=== PATIENT | male | born 1985 | race African-American/Black ===

== ENCOUNTER 2018-02-26 18:43 | Inpatient (IN) ==
[2018-02-26] MEDS ORDERED: Haloperidol Inj 5 MG/ML Ampul IM ONE (18:53)
--- NOTE | 2018-02-26 18:59 | ED ---
HPI General Chief complaint: Psychiatric Symptoms Stated complaint: psych eval/sherriff Time Seen by Provider: 02/27/18 12:20 Source: patient and police Mode of arrival: ambulatory Limitations: no limitations History of Present Illness HPI Narrative: 32-year-old male was Robert acted and brought in by Police Department for suicidal. Patient admitted to drinking alcohol today. Patient had recent in the family. Patient was suicidal and walking into traffic today. Patient's brother called police department. Patient was Robert acted and brought in for evaluation. Patient states that he does not have any medical problem. Patient states that he is not on any routine medication. Patient states he not allergic to medication. 1921 PM. Patient now states that he is HIV positive. complaint: Reports medical clearance requested Onset (ago): hour(s) Reason for Medical Clearance: psychiatric condition Place: home Alleged Intoxication: Yes Traumatic Symptoms: Reports denies traumatic injury Associated Symptoms: Reports denies other symptoms Treatments Prior to Arrival: Reports none Home Medications Medication Instructions Recorded Confirmed No Known Home Medications 02/26/18 02/26/18 Allergies Allergy/AdvReac Type Severity Reaction Status Date / Time No Known Allergies Allergy Verified 02/26/18 19:17 Review of Systems ROS: all other systems reviewed are negative PMFSH History History Provided By: Patient Medical History Medical History HIV (human immunodeficiency virus infection) (Acute) Social History Social History Substance History: No History of Abuse Second Hand Smoke Exposure: No Smoking Status: Never smoker Tobacco Type: Cigarettes How Often Do You Have a Drink Containing Alcohol: Never Recent Travel in [facility] within the Last 8 Weeks: No Recent Out of Country Travel within the Last 8 Weeks: No Exam Narrative Exam Narrative: GENERAL: Well-nourished, well-developed patient. SKIN: Focused skin assessment warm/dry. HEAD: Normocephalic. EYES: No scleral icterus. No injection or drainage. NECK: Supple, trachea midline. No JVD or lymphadenopathy. CARDIOVASCULAR: Regular rate and rhythm without murmurs, gallops, or rubs. RESPIRATORY: Breath sounds equal bilaterally. No accessory muscle use. GASTROINTESTINAL: Abdomen soft, non-tender, nondistended. MUSCULOSKELETAL: No cyanosis, or edema. BACK: Nontender without obvious deformity. No CVA tenderness. Neurologic exam normal. Course Initial Documented Vital Signs Temperature 98.7 F 02/26/18 19:02 Pulse Rate 80 02/26/18 19:02 Respiratory Rate 18 02/26/18 19:02 Last Documented Vital Signs Temperature 98.3 F 02/28/18 04:00 Pulse Rate 59 L 02/28/18 04:00 Respiratory Rate 17 02/28/18 04:00 Blood Pressure 116/68 02/28/18 04:00 Pulse Oximetry 96 02/28/18 04:00 Medical Decision Making MDM Narrative Medical decision making narrative: 32-year-old male was Jones acted and brought in by Police Department for suicidal attempt. 2020 8 PM. Patient is medically cleared for psychiatric evaluation. Medical Screen Exam Complete: Yes Emergency Medical Condition: Yes Differential Diagnosis Differential Diagnosis: Differential diagnosis including adjustment disorder, depression, suicidal, substance-induced mood disorder. Lab Data Lab results reviewed: Yes I reviewed the patient's lab results. Result diagrams: 02/26/18 19:15 02/26/18 19:15 Lab Results 02/26/18 02/26/18 02/27/18 Range/Units 19:15 19:15 15:45 WBC 3.7 L (4.0-11.0) th/mm3 RBC 5.25 (4.50-5.90) mil/mm3 Hgb 15.3 (13.0-17.0) gm/dL Hct 43.6 (39.0-51.0) % MCV 83.1 (80.0-100.0) fL MCH 29.2 (27.0-34.0) pg MCHC 35.1 (32.0-36.0) % RDW 13.7 (11.6-17.2) % Plt Count 210 (150-450) th/mm3 MPV 7.9 (7.0-11.0) fL Prelim Diff (Auto) Slide review pending Neut % (Auto) 23.8 (16.0-70.0) % Lymph % (Auto) 63.6 H (9.0-44.0) % [place] % (Auto) 6.3 (0.0-8.0) % Eos % (Auto) 5.4 H (0.0-4.0) % Baso % (Auto) 0.9 (0.0-2.0) % Neut # (Auto) 0.9 L (1.8-7.7) th/mm3 Lymph # (Auto) 2.3 (1.0-4.8) th/mm3 [place] # (Auto) 0.2 (0.0-0.9) th/mm3 Eos # (Auto) 0.2 (0.0-0.4) th/mm3 Baso # (Auto) 0.0 (0.0-0.2) th/mm3 WBC Differential Manual diff final Seg Neuts % (Manual) 22 (16-70) % Band Neuts % (Manual) 3 (0-6) % Lymphocytes % (Manual) 53 H (9-44) % Atypical Lymphs % (Man) 12 H (0-0) % Monocytes % (Manual) 1 (0-8) % Eosinophils % (Manual) 7 H (0-4) % Basophils % (Manual) 1 (0-2) % Metamyelocytes % (Man) 1 (0-1) % Abs Neuts (Manual) 1.0 L (1.8-7.7) th/mm3 Differential Comment . Platelet Estimate Normal (Normal) Platelet Morphology Normal (Normal) Sodium 139 (136-145) meq/L Potassium 3.6 (3.5-5.1) meq/L Chloride 107 (98-107) meq/L Carbon Dioxide 21.7 (21.0-32.0) meq/L Anion Gap 10 (5-15) meq/L BUN 11 (7-18) mg/dL Creatinine 0.99 (0.60-1.30) mg/dL Estimated GFR 89 (>89) mL/min Random Glucose 63 L (74-106) mg/dL Calcium 8.9 (8.5-10.1) mg/dL Total Bilirubin 0.3 (0.2-1.0) mg/dL AST 29 (15-37) U/L ALT 26 (12-78) U/L Alkaline Phosphatase 113 (45-117) U/L Total Protein 8.9 H (6.4-8.2) g/dL Albumin 4.0 (3.4-5.0) g/dL Triglycerides (42-150) mg/dL Cholesterol (120-200) mg/dL LDL Cholesterol, Calc (0-99) mg/dL HDL Cholesterol (40.0-60.0) mg/dL Cholesterol/HDL Ratio Ratio TSH 1.430 (0.358-3.740) uIU/mL Urine Opiates Screen Neg (Neg) Ur Barbiturates Screen Neg (Neg) Ur Amphetamines Screen Pos H (Neg) U Benzodiazepines Scrn Neg (Neg) Urine Cocaine Screen Neg (Neg) U Cannabinoids Screen Pos H (Neg) Serum Alcohol 194 H (0-5) mg/dL 02/28/18 Range/Units 06:01 WBC (4.0-11.0) th/mm3 RBC (4.50-5.90) mil/mm3 Hgb (13.0-17.0) gm/dL Hct (39.0-51.0) % MCV (80.0-100.0) fL MCH (27.0-34.0) pg MCHC (32.0-36.0) % RDW (11.6-17.2) % Plt Count (150-450) th/mm3 MPV (7.0-11.0) fL Prelim Diff (Auto) Neut % (Auto) (16.0-70.0) % Lymph % (Auto) (9.0-44.0) % [place] % (Auto) (0.0-8.0) % Eos % (Auto) (0.0-4.0) % Baso % (Auto) (0.0-2.0) % Neut # (Auto) (1.8-7.7) th/mm3 Lymph # (Auto) (1.0-4.8) th/mm3 [place] # (Auto) (0.0-0.9) th/mm3 Eos # (Auto) (0.0-0.4) th/mm3 Baso # (Auto) (0.0-0.2) th/mm3 WBC Differential Seg Neuts % (Manual) (16-70) % Band Neuts % (Manual) (0-6) % Lymphocytes % (Manual) (9-44) % Atypical Lymphs % (Man) (0-0) % Monocytes % (Manual) (0-8) % Eosinophils % (Manual) (0-4) % Basophils % (Manual) (0-2) % Metamyelocytes % (Man) (0-1) % Abs Neuts (Manual) (1.8-7.7) th/mm3 Differential Comment Platelet Estimate (Normal) Platelet Morphology (Normal) Sodium (136-145) meq/L Potassium (3.5-5.1) meq/L Chloride (98-107) meq/L Carbon Dioxide (21.0-32.0) meq/L Anion Gap (5-15) meq/L BUN (7-18) mg/dL Creatinine (0.60-1.30) mg/dL Estimated GFR (>89) mL/min Random Glucose (74-106) mg/dL Calcium (8.5-10.1) mg/dL Total Bilirubin (0.2-1.0) mg/dL AST (15-37) U/L ALT (12-78) U/L Alkaline Phosphatase (45-117) U/L Total Protein (6.4-8.2) g/dL Albumin (3.4-5.0) g/dL Triglycerides 100 (42-150) mg/dL Cholesterol 151 (120-200) mg/dL LDL Cholesterol, Calc 93 (0-99) mg/dL HDL Cholesterol 37.7 L (40.0-60.0) mg/dL Cholesterol/HDL Ratio 4.00 Ratio TSH (0.358-3.740) uIU/mL Urine Opiates Screen (Neg) Ur Barbiturates Screen (Neg) Ur Amphetamines Screen (Neg) U Benzodiazepines Scrn (Neg) Urine Cocaine Screen (Neg) U Cannabinoids Screen (Neg) Serum Alcohol (0-5) mg/dL Discharge Plan Discharge Disposition Patient Disposition: 32 Still Patient Physicians Team ED Provider: Hermes Horton Primary Care Provider: UNKNOWN, Attending Provider: Lexa Ku Discharge Interventions Interventions: ED Discharge Assessment Last Done: 02/27/18 18:45 Vital Signs Last Done: 02/27/18 04:20 Status ED Status: Left Department Discharge Information Discharge Date/Time: 02/27/18 15:45
[2018-02-26 19:32] LABS: Baso % (Auto) 0.9 % (0.0-2.0); Eos # (Auto) 0.2 th/mm3 (0.0-0.4); Eos % (Auto) 5.4 % (0.0-4.0); Hematocrit 43.6 % (39.0-51.0); Hemoglobin 15.3 gm/dL (13.0-17.0); Lymph # (Auto) 2.3 th/mm3 (1.0-4.8); Lymph % (Auto) 63.6 % (9.0-44.0); Mean Corpuscular HGB Conc 35.1 % (32.0-36.0); Mean Corpuscular Hemoglobin 29.2 pg (27.0-34.0); Mean Corpuscular Volume 83.1 fL (80.0-100.0); Mean Platelet Volume 7.9 fL (7.0-11.0); Mono # (Auto) 0.2 th/mm3 (0.0-0.9); Mono % (Auto) 6.3 % (0.0-8.0); Neut # (Auto) 0.9 th/mm3 (1.8-7.7); Neut % (Auto) 23.8 % (16.0-70.0); Platelet Count 210 th/mm3 (150-450); Red Blood Count 5.25 mil/mm3 (4.50-5.90); Red Cell Distribution Width 13.7 % (11.6-17.2); White Blood Count 3.7 th/mm3 (4.0-11.0)
[2018-02-26 20:09] LABS: Anion Gap 10 meq/L (5-15); Blood Urea Nitrogen 11 mg/dL (7-18); Calcium 8.9 mg/dL (8.5-10.1); Carbon Dioxide 21.7 meq/L (21.0-32.0); Chloride 107 meq/L (98-107); Glomerular Filtration Rate 89 mL/min (>89); Glucose,Random 63 mg/dL (74-106); Potassium 3.6 meq/L (3.5-5.1); Sodium 139 meq/L (136-145)
[2018-02-26 20:11] LABS: Alanine Aminotransferase 26 U/L (12-78); Aspartate Aminotransferase 29 U/L (15-37)
[2018-02-26 20:13] LABS: Alcohol 194 mg/dL (0-5)
[2018-02-26 20:21] LABS: Alkaline Phosphatase 113 U/L (45-117); Total Protein 8.9 g/dL (6.4-8.2)
[2018-02-26 20:31] LABS: Atypical Lymphs 12 % (0-0); Eosinophils 7 % (0-4); Lymphocytes 53 % (9-44); Metamyelocytes 1 % (0-1); Monocytes 1 % (0-8)
[2018-02-26 20:33] LABS: Platelet Estimate Normal (Normal); Platelet Morphology Normal (Normal)
--- NOTE | 2018-02-27 13:09 | ED ---
HPI - Psych - General Source: patient, police Mode of arrival: ambulatory Limitations: no limitations - History of Present Illness MD complaint: suicidal ideation Onset (ago): week(s) Duration: constant History of same: Yes Relieving factors: none Exacerbating factors: alcohol Context: significant life stressor Associated psychiatric symptoms: depression Associated symptoms: denies other symptoms Treatments prior to arrival: placed on mental health hold If self harm: admits thoughts of self harm - General Chief Complaint: Psychiatric Symptoms Stated Complaint: psych eval/sherriff Time Seen by Provider: 02/27/18 12:20 - History of Present Illness HPI Narrative: History of Present Illness HPI Narrative: 32-year-old, single,, male, unemployed, currently living with his immediate family, no previous psychiatric history, 1 previous suicide attempt in 2008, who presents to the ED under Jones act initiated by law enforcement. That report alleges that the patient responded to a call from the patient's brother who stated the patient was running into traffic trying to kill himself. Patient reported to the police that he had been depressed and drinking heavily due to the recent of his brother. Patient was under the influence at the time and presented to the ED with blood alcohol level of 194. Electronic medical record is reviewed. No previous contact with [facility]. Patient has been monitored in J pod. He has been isolative, has refused his breakfast. Patient is seen. He is alert and oriented. He initially states that he was not trying to get hit by a car but that rather he was trying to get away from his family. However towards the end of the visit the patient began to cry and admitted that he wanted to . He also goes on to state that he never feels happy and that he does not see a purpose for his life. " I wish you guys which just sent me away" he states. The patient reports that he has felt depressed for a very long time. In terms of previous suicide attempt he states "I think I tried to hang myself back in 2008 when my sister ."He states his sister drowned in a swimming pool. He did not follow-up with treatment after his 3- day stay at [facility]. Current stressors include to include the recent of his brother in a motor vehicle accident approximately 3 weeks ago. (Emely Beck) - Related Data Home Medications Medication Instructions Recorded Confirmed No Known Home Medications 02/26/18 02/26/18 Allergies Allergy/AdvReac Type Severity Reaction Status Date / Time No Known Allergies Allergy Verified 02/26/18 19:17 [facility] - History History Provided By: Patient - Medical History Medical History: Medical History (Last Updated 02/26/18 @ 19:18 by Elif Arellano RN) HIV (human immunodeficiency virus infection) - Social History I have reviewed the patient's Social History: Yes - Tobacco History Second Hand Smoke Exposure: No Tobacco Use In Past 30 Days: No Smoking Status: Refused to answer Tobacco Type: Cigarettes - Alcohol History How Often Do You Have a Drink Containing Alcohol: 4 or more times a week - Substance Use History Substance History: Unable to Obtain - Travel History Recent Travel in the [place] Within the Last 8 Weeks: No Recent Travel Out of the Country Within the Last 8 Weeks: No - Immunization History Tetanus Immunization: Unsure Psychiatric History - Psychiatric History Psychiatric Treatment History: History of Psychiatric Treatment, Denies Previous Treatment History of Inpatient Treatment: No Firearms in Home: No - Psychiatric History 1 previous suicide attempt in 2008 by hanging. Was placed under Jones act and taken to [facility]. He reports he did not received outpatient care and that he refused to take medications (Beck,Emely) - Family Psychiatric History Unaware of any (Beck,Emely) Physical Exam - General Limitations: no limitations Mental Status Examination Consciousness: Alert Orientation: x4 Motor Activity: Normal gait Speech: Hesitant Language: Adequate Fund of Knowledge: Adequate Attention and Concentration: Adequate Memory: Unremarkable Mood: Sad Affect: Other Thought Process & Associations: Intact, Logical (Tearful at times), Goal directed Thought Content: Appropriate Hallucination Type: None Delusion Type: None Suicidal Ideation: Yes Suicidal Plan: No Suicidal Intention: No Homicidal Ideation: No Homicidal Plan: No Homicidal Intention: No Insight: Fair Judgment: Impulsive Initial Documented Vital Signs Temperature 98.7 F 02/26/18 19:02 Pulse Rate 80 02/26/18 19:02 Respiratory Rate 18 02/26/18 19:02 Last Documented Vital Signs Temperature 98.9 F 02/26/18 19:05 Pulse Rate 80 02/27/18 04:20 Respiratory Rate 18 02/27/18 04:20 Blood Pressure 123/72 02/27/18 04:20 Pulse Oximetry 100 02/27/18 04:20 MDM - Psych - Diagnosis (1) Adjustment disorder with depressed mood Status: Acute - Lab Data Result diagrams: 02/26/18 19:15 02/26/18 19:15 - [facility] Narrative Medical decision making narrative: At the time of this evaluation the patient is clinically sober. He continues to endorse depressed mood with hopelessness. He also continues to endorse suicidal ideation. Patient will remain under a Jones act and we will place him on SMA list for disposition. If a bed does not come available within a reasonable amount of time may consider admitting to our inpatient psychiatric unit. (Emely Beck) - Lab Data Lab Results 02/26/18 02/26/18 Range/Units 19:15 19:15 WBC 3.7 L (4.0-11.0) th/mm3 RBC 5.25 (4.50-5.90) mil/mm3 Hgb 15.3 (13.0-17.0) gm/dL Hct 43.6 (39.0-51.0) % MCV 83.1 (80.0-100.0) fL MCH 29.2 (27.0-34.0) pg MCHC 35.1 (32.0-36.0) % RDW 13.7 (11.6-17.2) % Plt Count 210 (150-450) th/mm3 MPV 7.9 (7.0-11.0) fL Prelim Diff (Auto) Slide review pending Neut % (Auto) 23.8 (16.0-70.0) % Lymph % (Auto) 63.6 H (9.0-44.0) % [place] % (Auto) 6.3 (0.0-8.0) % Eos % (Auto) 5.4 H (0.0-4.0) % Baso % (Auto) 0.9 (0.0-2.0) % Neut # (Auto) 0.9 L (1.8-7.7) th/mm3 Lymph # (Auto) 2.3 (1.0-4.8) th/mm3 [place] # (Auto) 0.2 (0.0-0.9) th/mm3 Eos # (Auto) 0.2 (0.0-0.4) th/mm3 Baso # (Auto) 0.0 (0.0-0.2) th/mm3 WBC Differential Manual diff final Seg Neuts % (Manual) 22 (16-70) % Band Neuts % (Manual) 3 (0-6) % Lymphocytes % (Manual) 53 H (9-44) % Atypical Lymphs % (Man) 12 H (0-0) % Monocytes % (Manual) 1 (0-8) % Eosinophils % (Manual) 7 H (0-4) % Basophils % (Manual) 1 (0-2) % Metamyelocytes % (Man) 1 (0-1) % Abs Neuts (Manual) 1.0 L (1.8-7.7) th/mm3 Differential Comment . Platelet Estimate Normal (Normal) Platelet Morphology Normal (Normal) Sodium 139 (136-145) meq/L Potassium 3.6 (3.5-5.1) meq/L Chloride 107 (98-107) meq/L Carbon Dioxide 21.7 (21.0-32.0) meq/L Anion Gap 10 (5-15) meq/L BUN 11 (7-18) mg/dL Creatinine 0.99 (0.60-1.30) mg/dL Estimated GFR 89 (>89) mL/min Random Glucose 63 L (74-106) mg/dL Calcium 8.9 (8.5-10.1) mg/dL Total Bilirubin 0.3 (0.2-1.0) mg/dL AST 29 (15-37) U/L ALT 26 (12-78) U/L Alkaline Phosphatase 113 (45-117) U/L Total Protein 8.9 H (6.4-8.2) g/dL Albumin 4.0 (3.4-5.0) g/dL TSH 1.430 (0.358-3.740) uIU/mL Serum Alcohol 194 H (0-5) mg/dL
[2018-02-27] MEDS ORDERED: Acetaminophen 325 MG Tablet PO PRN (16:27)
[2018-02-27] MEDS ORDERED: Aluminum/Magnesium/Simethacone Susp 30 ML UDC PO PRN (16:27)
[2018-02-27] MEDS ORDERED: LORazepam 1 MG Tablet PO PRN (16:28)
[2018-02-27] MEDS ORDERED: Haloperidol Inj 5 MG/ML Ampul IV.PUSH PRN (16:28)
[2018-02-27 16:35] LABS: Amphetamine Screen,Urine Pos (Neg); Barbiturate Screen,Urine Neg (Neg); Cannabinoid Screen,Urine Pos (Neg); Cocaine Screen,Urine Neg (Neg)
[2018-02-27 16:36] LABS: Opiate Screen,Urine Neg (Neg)
[2018-02-28 07:41] LABS: HDL Cholesterol 37.7 mg/dL (40.0-60.0)
[2018-02-28] MEDS: Folic Acid 1 MG Tablet PO SCH (10:14)
[2018-02-28] MEDS: Multivitamin/Minerals Therapeutic Tablet PO SCH (10:14)
[2018-02-28 13:06] LABS: Hemoglobin A1c 5.2 % (4.3-6.0)
--- NOTE | 2018-02-28 17:14 | P.HPPSY ---
Provisional Diagnosis Admission Date: February 27, 2018 16:51 Competence Certification of Person's Competence To Provide Express and Informed Consent I have personally examined Roosevelt Hayes, a person being served at [facility] on, February 28, 2018 1708. Express and informed consent means consent voluntarily given in writing, by a competent person, after sufficient explanation and disclosure of the subject matter involved to enable the person to make a knowing and willful decision without any element of force, fraud, deceit, duress, or other form of constraint or coercion. This person is 18 years of age or older, is not now known to be incompetent to consent to treatment with a guardian advocate, and does not have a health care surrogate or proxy currently making medical treatment decisions. I have found this person to be one of the following: [] Competent to provide express and informed consent, as defined above, for voluntary admission to this facility and is competent to provide express and informed consent for treatment. He/she has the consistent capacity to make well reasoned, willful, and knowing decisions concerning his or her medical or mental health treatment. The person fully and consistently understands the purpose of the admission for examination/placement and is fully capable of personally exercising all rights assured [place] [X] Incompetent to provide express and informed consent to voluntary admission, and this is incompetent to provide express and informed consent to treatment. The person must be transferred to involuntary status and a petition for a guardian advocate filed with the Circuit Court. [] Refusing to provide express and informed consent to voluntary admission but is competent to provide express and informed consent for treatment. The person must be discharged or transferred to involuntary status. Form shall be completed within 24 hours of a person's arrival at the receiving facility and filed in the clinical record of each person: 1. Admitted on a voluntary basis 2. Permitted to provide express and informed consent to his/her own treatment 3. Allowed to transfer from involuntary to voluntary status 4. Prior to permitting a person to consent to his or her own treatment after having been previously found incompetent to consent to treatment. History of Present Illness Capacity: Lacks capacity Chief Complaint: SI History of Present Illness: Patient is a 32-year-old black male with a previous history of suicide attempt. Patient interviewed in bed and is guarded, evasive and at times rude. He continues to give conflicting information as he did in the note noted below. Today, patient claims he was never suicidal and never made statements he wanted to run into traffic. He is oppositional, with an irritable affect and minimal interaction during the interview. He minimizes alcohol use before the event. He does admit to recent depressed mood with low energy. However, today, he denies suicidal or homicidal ideation intent or plan. Recent stressors include the recent of his cousin in August 04 of this year. Describes his mood is "anxiety, loss of anxiety." Past psych: Try to kill himself in 2008 via hanging his young sister drowned in a pool Past medical: HIV? Past Famhx: Mom has depression Past Social:Claims he drinks a beer a day or glass of alcohol a day. Says he is working and in school. 32-year-old, single,, male, unemployed, currently living with his immediate family, no previous psychiatric history, 1 previous suicide attempt in 2008, who presents to the ED under Jones act initiated by law enforcement. That report alleges that the patient responded to a call from the patient's brother who stated the patient was running into traffic trying to kill himself. Patient reported to the police that he had been depressed and drinking heavily due to the recent of his brother. Patient was under the influence at the time and presented to the ED with blood alcohol level of 194. Electronic medical record is reviewed. No previous contact with [facility]. Patient has been monitored in J pod. He has been isolative, has refused his breakfast. Patient is seen. He is alert and oriented. He initially states that he was not trying to get hit by a car but that rather he was trying to get away from his family. However towards the end of the visit the patient began to cry and admitted that he wanted to . He also goes on to state that he never feels happy and that he does not see a purpose for his life. " I wish you guys which just sent me away" he states. The patient reports that he has felt depressed for a very long time. In terms of previous suicide attempt he states "I think I tried to hang myself back in 2008 when my sister ."He states his sister drowned in a swimming pool. He did not follow-up with treatment after his 3- day stay at [place]. Current stressors include to include the recent of his brother in a motor vehicle accident approximately 3 weeks ago. - Inpatient Certification I certify that the inpatient services were ordered in accordance with Medicare regulations governing the order. This includes certification that hospital inpatient services are reasonable and necessary and in the case of services not specified as inpatient-only under 42 CFR 419.22(n), that they are appropriately provided as inpatient services in accordance to with the 2-midnight benchmark under 43 CFR 412.3(e) I certify that inpatient psychiatric hospital services are medically necessary. Evaluation and treatment and/or diagnostic testing are expected to improve the patient's condition. The patient needs on a daily basis, active treatment furnished directly by or requiring the supervision of inpatient psychiatric facility personnel. Estimated Total Length of Stay (Days): 5 Plans for Post Hospital Care: Not yet determined PMF - History History Provided By: Patient - Medical History Medical History: Medical History (Last Reviewed 02/28/18 @ 17:11 by Ben Robert DO) HIV (human immunodeficiency virus infection) - Tobacco History Second Hand Smoke Exposure: No Tobacco Use In Past 30 Days: No Smoking Status: Never smoker Tobacco Type: Cigarettes - Alcohol History How Often Do You Have a Drink Containing Alcohol: Never - Substance Use History Substance History: Unable to Obtain - Travel History Recent Travel in the [place] Within the Last 8 Weeks: No Recent Travel Out of the Country Within the Last 8 Weeks: No - Immunization History Tetanus Immunization: >5 Years Hx Influenza Vaccine This Season: No Medications and Allergies Active Medications: Active Medications Acetaminophen (Tylenol) 650 mg PO Q4H PRN PRN Reason: Pain 1-5 or Temp >101F Al Hydrox/Mg Hydrox/Simethicone (Mag-Al Plus Susp Liq) 30 ml PO Q6H PRN PRN Reason: DYSPEPSIA Al Hydroxide/Mg Hydroxide (Milk Of Magnesia Liq) 30 ml PO Q12H PRN PRN Reason: Mild Constipation Flumazenil (Romazecon Inj) 0.2 mg IV.PUSH Q1M PRN PRN Reason: OVERSEDATION Folic Acid (Folic Acid) 1 mg PO DAILY [facility] Stop: 03/05/18 08:59 Last Admin: 02/28/18 10:14 Dose: 1 mg Haloperidol Lactate (Haldol Inj) 1 mg IV.PUSH Q15M PRN PRN Reason: for severe agitation Lorazepam (Ativan) 1 mg PO Q4H PRN PRN Reason: for CIWA 8-10 Lorazepam (Ativan) 2 mg PO Q2H PRN PRN Reason: for CIWA 11-14 Lorazepam (Ativan Inj) 2 mg IV.PUSH Q1H PRN PRN Reason: for CIWA 15-20 Lorazepam (Ativan Inj) 2 mg IV.PUSH Q15M PRN PRN Reason: for CIWA > 20 Lorazepam (Ativan Inj) 1 mg IV.PUSH Q4H PRN PRN Reason: for CIWA 8-10 Lorazepam (Ativan Inj) 2 mg IV.PUSH Q2H PRN PRN Reason: for CIWA 11-14 Melatonin (Melatonin) 5 mg PO HS PRN PRN Reason: INSOMNIA Multivitamins/Minerals (Theragran-M) 1 tab PO DAILY [facility] Stop: 03/05/18 08:59 Last Admin: 02/28/18 10:14 Dose: 1 tab Nicotine (Habitrol 14 Mg Patch.24 Hr) 1 patch T-DERMAL DAILY PRN PRN Reason: Nicotine craving Patch Removal (Remove Old Patch) 1 each T-DERMAL HS [facility] Last Admin: 02/27/18 21:00 Dose: Not Given Thiamine HCl (Vitamin B1) 100 mg PO DAILY [facility] Last Admin: 02/28/18 10:14 Dose: 100 mg Allergies Allergy/AdvReac Type Severity Reaction Status Date / Time No Known Allergies Allergy Verified 02/26/18 19:17 Home Medications Medication Instructions Recorded Confirmed Type No Known Home Medications 02/26/18 02/26/18 History Results - Labs CBC & Chem 7: 02/26/18 19:15 02/26/18 19:15 Labs: Laboratory Results - last 24 hr 02/28/18 02/28/18 02/28/18 06:01 06:41 08:43 Hemoglobin A1c 5.2 Triglycerides 100 Cholesterol 151 LDL Cholesterol, Calc 93 HDL Cholesterol 37.7 L Cholesterol/HDL Ratio 4.00 HIV 1&2 Ab/P24 Ag 4thGn Reflex H Exam Vital signs: Vital Signs 02/27/18 18:35 02/27/18 21:32 02/28/18 04:00 Temperature 98.5 F 98.7 F 98.3 F Pulse Rate 68 84 59 L Respiratory Rate 17 17 Blood Pressure 110/66 115/78 116/68 Pulse Oximetry 100 100 96 Intake & Output 02/27/18 02/28/18 02/28/18 18:59 06:59 18:59 Weight 59.2 kg Other: Weight On Admission 59.2 kg Mental Status Examination Appearance: Appropriate Consciousness: Alert Orientation: x4 Motor Activity: Normal gait Speech: Hesitant, Slow Language: Adequate Fund of Knowledge: Adequate Attention and Concentration: Adequate Memory: Unremarkable Mood: Sad Affect: Irritable Thought Process & Associations: Intact, Logical (Tearful at times), Goal directed Thought Content: Appropriate Hallucination Type: None Delusion Type: None Suicidal Ideation: Yes Suicidal Plan: No Suicidal Intention: No Homicidal Ideation: No Homicidal Plan: No Homicidal Intention: No Insight: Fair Judgment: Impulsive Assessment and Plan - Assessment (1) Adjustment disorder with depressed mood Code(s): F43.21 - Adjustment disorder with depressed mood Status: Acute - Plan Plan: Estimated LOS: [] days Given her oppositional behavior we will make patient involuntary. Petition was started Justification for Continued Inpatient Stay: Patient would decompensate in a less restrictive setting
[2018-03-01] MEDS: Multivitamin/Minerals Therapeutic Tablet PO SCH (08:43)
[2018-03-01] MEDS: Folic Acid 1 MG Tablet PO SCH (08:43)
--- NOTE | 2018-03-01 11:05 | P.PNPSY ---
Subjective Chief Complaint: SI Remarks: Reviewed electronic medical records and discussed case with staff. Follow-up was conducted in the visiting area with ESTEBAN Alberts present. Patient is very guarded. He is vague when responding to questions. Nursing reports that he is very seclusive and only come out of his room for meals. Denies SI/HI. Review of Systems All other systems reviewed negative except as stated in HPI Mental Status Examination Appearance: Appropriate Consciousness: Alert Orientation: x4 Motor Activity: Normal gait Speech: Hesitant, Slow Language: Adequate Fund of Knowledge: Adequate Attention and Concentration: Adequate Memory: Unremarkable Mood: Sad Affect: Irritable Thought Process & Associations: Intact, Logical (Tearful at times), Goal directed Thought Content: Appropriate Hallucination Type: None Delusion Type: None Suicidal Ideation: No Suicidal Plan: No Suicidal Intention: No Homicidal Ideation: No Homicidal Plan: No Homicidal Intention: No Insight: Fair Judgment: Impulsive Assessment and Plan - Assessment (1) Adjustment disorder with depressed mood Code(s): F43.21 - Adjustment disorder with depressed mood Status: Acute - Plan Plan: Estimated LOS: [] days Continue current treatment plan. Justification for Continued Inpatient Stay: Moving patient to a less restrictive environment may result in his decompensation.
[2018-03-01] MEDS ORDERED: LORazepam 1 MG Tablet PO PRN (15:39)
[2018-03-01] MEDS ORDERED: Sertraline 50 MG Tablet PO ONE (15:40)
--- NOTE | 2018-03-01 15:40 | P.CONPSY ---
Provisional Diagnosis Admission Date: February 27, 2018 16:51 [place] I.: Adjustment disorder with depressed mood History of Present Illness Service: Psychiatry Consult date: 03/01/18 Reason for Consult: Second opinion Primary Care Provider: UNKNOWN History of Present Illness: Patient is a 32-year-old man, domiciled with family, history of recent loss of family member 3 weeks ago which patient was brought in under Jones act due to allegedly having walked or ran in front of traffic in a suicide attempt which patient was admitted to the inpatient psychiatry for further evaluation and management. Patient was found ambulating on unit noted B, cooperative. Patient was seen with nurse. Patient states that he is feeling "fine" but then was noted to be tearful throughout interview stating he had argument with his family recently and stated he wanted to leave the home and went out of the home which she states family allegedly concerned that he was trying to walk in front of traffic. He states he had no intention of ending his life and that his house [place] in front of a busy intersection she had across the street but states again that he had no intention of self-harm at that time. He reports feeling depressed to be worsening recently in the context of recent family loss 3 weeks ago. Patient did admit to worsening depression along with intermittent suicidal ideation. Patient states that "her emotions are just high" and his home. He states that he sleeps has been interrupted recently with inconsistent appetite, energy and concentration. Patient denies any perceptional services noted be tearful throughout interview and agreed to be more amenable to medications at this time. Review of Systems All other systems reviewed negative except as stated in HPI PMFSH - History History Provided By: Patient, Medical Record - Medical History Medical History: Medical History (Last Reviewed 02/28/18 @ 17:11 by Ben Robert DO) HIV (human immunodeficiency virus infection) - Tobacco History Second Hand Smoke Exposure: No Tobacco Use In Past 30 Days: No Smoking Status: Never smoker Tobacco Type: Cigarettes - Alcohol History How Often Do You Have a Drink Containing Alcohol: Never - Substance Use History Substance History: Unable to Obtain - Travel History Recent Travel in the [place] Within the Last 8 Weeks: No Recent Travel Out of the Country Within the Last 8 Weeks: No - Immunization History Tetanus Immunization: >5 Years Hx Influenza Vaccine This Season: No Medications and Allergies Active Medications: Active Medications Acetaminophen (Tylenol) 650 mg PO Q4H PRN PRN Reason: Pain 1-5 or Temp >101F Al Hydrox/Mg Hydrox/Simethicone (Mag-Al Plus Susp Liq) 30 ml PO Q6H PRN PRN Reason: DYSPEPSIA Al Hydroxide/Mg Hydroxide (Milk Of Magnesia Liq) 30 ml PO Q12H PRN PRN Reason: Mild Constipation Flumazenil (Romazecon Inj) 0.2 mg IV.PUSH Q1M PRN PRN Reason: OVERSEDATION Folic Acid (Folic Acid) 1 mg PO DAILY [facility] Stop: 03/05/18 08:59 Last Admin: 03/01/18 08:43 Dose: 1 mg Haloperidol Lactate (Haldol Inj) 1 mg IV.PUSH Q15M PRN PRN Reason: for severe agitation Lorazepam (Ativan) 1 mg PO Q4H PRN PRN Reason: for CIWA 8-10 Lorazepam (Ativan) 2 mg PO Q2H PRN PRN Reason: for CIWA 11-14 Lorazepam (Ativan Inj) 2 mg IV.PUSH Q1H PRN PRN Reason: for CIWA 15-20 Lorazepam (Ativan Inj) 2 mg IV.PUSH Q15M PRN PRN Reason: for CIWA > 20 Lorazepam (Ativan Inj) 1 mg IV.PUSH Q4H PRN PRN Reason: for CIWA 8-10 Lorazepam (Ativan Inj) 2 mg IV.PUSH Q2H PRN PRN Reason: for CIWA 11-14 Melatonin (Melatonin) 5 mg PO HS PRN PRN Reason: INSOMNIA Multivitamins/Minerals (Theragran-M) 1 tab PO DAILY [facility] Stop: 03/05/18 08:59 Last Admin: 03/01/18 08:43 Dose: 1 tab Nicotine (Habitrol 14 Mg Patch.24 Hr) 1 patch T-DERMAL DAILY PRN PRN Reason: Nicotine craving Patch Removal (Remove Old Patch) 1 each T-DERMAL HS [facility] Last Admin: 02/28/18 20:47 Dose: Not Given Thiamine HCl (Vitamin B1) 100 mg PO DAILY [facility] Last Admin: 03/01/18 08:43 Dose: 100 mg Allergies Allergy/AdvReac Type Severity Reaction Status Date / Time No Known Allergies Allergy Verified 02/26/18 19:17 Home Medications Medication Instructions Recorded Confirmed Type No Known Home Medications 02/26/18 02/26/18 History Exam Vital signs: Vital Signs 02/28/18 19:20 03/01/18 06:13 Temperature 98.3 F 98.7 F Pulse Rate 63 64 Respiratory Rate 17 17 Blood Pressure 103/62 108/64 Pulse Oximetry 99 98 Narrative: Patient not noted to be in acute distress, no gross motor abnormalities, no signs of tremor or EPS, no psychomotor agitation or retardation. - Constitutional no acute distress, cooperative Mental Status Examination Appearance: Appropriate Consciousness: Alert Orientation: x4 Motor Activity: Normal gait Speech: Hesitant, Slow Language: Adequate Fund of Knowledge: Adequate Attention and Concentration: Adequate Memory: Unremarkable Mood: Sad Affect: Sad, Other (Tearful) Thought Process & Associations: Intact, Logical (Tearful at times), Goal directed Thought Content: Appropriate Hallucination Type: None Delusion Type: None Suicidal Ideation: Yes (Intermittent but denies today) Suicidal Plan: No Suicidal Intention: No Homicidal Ideation: No Homicidal Plan: No Homicidal Intention: No Insight: Fair Judgment: Impulsive Assessment and Plan - Assessment (1) Adjustment disorder with depressed mood Code(s): F43.21 - Adjustment disorder with depressed mood Status: Acute - Plan Plan: I have seen and examined this patient, reviewed the documentation, and I agree and concur with Dr. Robert assessment and plan. I have completed second opinion for the petition for involuntary hospitalization. Consult appreciated. Patient would benefit from starting antidepressant medications. We will start patient on sertraline 25 mg x1, 50 mg p.o. thereafter for depression, continue to monitor mood and behavior. Patient also started lorazepam 1 mg every 6 hours as needed for anxiety, diphenhydramine 50 mg p.o. at bedtime as needed for insomnia. Patient has capacity to consent for treatment. Collateral information pending. Discharge planning in progress. Justification for Continued Inpatient Stay: At risk of further decompensation at lower level care.
[2018-03-01] MEDS: Melatonin 5 MG Tablet PO PRN (20:09)
[2018-03-02] MEDS: Multivitamin/Minerals Therapeutic Tablet PO SCH (09:33)
[2018-03-02] MEDS: Sertraline 50 MG Tablet PO SCH (09:33)
[2018-03-02] MEDS: Folic Acid 1 MG Tablet PO SCH (09:33)
--- NOTE | 2018-03-02 14:06 | P.PNPSY ---
Subjective Chief Complaint: SI Remarks: Patient seen for follow-up, chart reviewed. Discussion with nursing staff reported that patient no behavioral disturbances,, has been compliant with medications. Patient was found ambulating on the unit and was participating in group activity noted B, cooperative. Patient noted with improved spirits today patient states that he is feeling "fine". He is reports having slept better last evening, and that his mood has been "better". Patient states that he is feeling able to interact more with others being more social and states having been able to connect with another patient on the unit. Patient denies any adverse drug reactions. Is tolerating medications well. Patient continues report decreased appetite but states that he is trying to eat more. Patient reports not having spoken with his family yet but plans on doing so. Review of Systems All other systems reviewed negative except as stated in HPI Mental Status Examination Appearance: Appropriate Consciousness: Alert Orientation: x4 Motor Activity: Normal gait Speech: Hesitant, Slow Language: Adequate Fund of Knowledge: Adequate Attention and Concentration: Adequate Memory: Unremarkable Mood: Sad (lessening) Affect: Sad (lessening) Thought Process & Associations: Intact, Logical, Linear Thought Content: Appropriate Hallucination Type: None Delusion Type: None Suicidal Ideation: Yes (Intermittent but denies today) Suicidal Plan: No Suicidal Intention: No Homicidal Ideation: No Homicidal Plan: No Homicidal Intention: No Insight: Fair Judgment: Impulsive Assessment and Plan - Assessment (1) Adjustment disorder with depressed mood Code(s): F43.21 - Adjustment disorder with depressed mood Status: Acute - Plan Plan: Patient noted with improvement in mood, and affect but continues report feeling depressed and denying any suicide ideation at this time but states that it is lessening. Continue current treatment. Patient tolerating medication well with no adverse drug reactions. Continue to monitor mood and behavior. Continue to encourage patient to improve nutritional intake and potassium more groups and activities while on the unit. Discharge planning in progress. Justification for Continued Inpatient Stay: At risk of further decompensation at lower level care.
[2018-03-02] MEDS: LORazepam 1 MG Tablet PO PRN (15:13)
[2018-03-02] MEDS: Melatonin 5 MG Tablet PO PRN (20:22)
[2018-03-03] MEDS: Folic Acid 1 MG Tablet PO SCH (09:04)
[2018-03-03] MEDS: Sertraline 50 MG Tablet PO SCH (09:04)
[2018-03-03] MEDS: Multivitamin/Minerals Therapeutic Tablet PO SCH (09:04)
--- NOTE | 2018-03-03 10:32 | P.PNPSY ---
Subjective Chief Complaint: SI Remarks: Patient seen for follow-up, chart reviewed. Discussion with nursing staff reported that patient focused on discharge but attending groups and visible on the unit. Patient was found participating group activity noted to be in good spirits. Patient state having spoken with his mom yesterday states he went well. He states his mood has been "fine" denying feeling depressed today denying suicide ideations stating the last time was 3 days ago. Patient reports eating and drinking well. Patient's mentions feeling happy today and feeling okay with not knowing what will happen in the future. Patient agrees to continue outpatient follow-up as well as engage in medical services to continue management of HIV diagnoses. Patient denies any perceptional disturbances or delusions. Review of Systems All other systems reviewed negative except as stated in HPI Mental Status Examination Appearance: Appropriate Consciousness: Alert Orientation: x4 Motor Activity: Normal gait Speech: Unremarkable Language: Adequate Fund of Knowledge: Adequate Attention and Concentration: Adequate Memory: Unremarkable Mood: Appropriate Affect: Appropriate Thought Process & Associations: Intact, Logical, Linear Thought Content: Appropriate Hallucination Type: None Delusion Type: None Suicidal Ideation: No Suicidal Plan: No Suicidal Intention: No Homicidal Ideation: No Homicidal Plan: No Homicidal Intention: No Insight: Fair Judgment: Impulsive Assessment and Plan - Assessment (1) Adjustment disorder with depressed mood Code(s): F43.21 - Adjustment disorder with depressed mood Status: Acute - Plan Plan: Patient this time noted with improved mood, visible on the unit, compliant with medications, denying any suicide ideations at this time. Patient agrees for further lab work regarding HIV status. We will continue current treatment. Continue monitor mood and behavior. Patient likely for discharge tomorrow. Justification for Continued Inpatient Stay: At risk of further decompensation at lower level care.
[2018-03-03] MEDS: Melatonin 5 MG Tablet PO PRN (20:56)
[2018-03-04 00:23] LABS: HIV 1 Antibody Positive (Negative); HIV 2 Antibody Negative (Negative)
[2018-03-04] MEDS: Folic Acid 1 MG Tablet PO SCH (08:41)
[2018-03-04] MEDS: Sertraline 50 MG Tablet PO SCH (08:41)
[2018-03-04] MEDS: Multivitamin/Minerals Therapeutic Tablet PO SCH (08:41)
--- NOTE | 2018-03-04 11:47 | P.DSPSY ---
Psychiatry Discharge Summary Inpatient Psychiatric care?: Yes Advance Directives: No Mental Health Advance Directive: No Health Care Proxy: No - Admission Admission Date: February 27, 2018 16:51 - Admission Diagnosis (1) Adjustment disorder with depressed mood Code(s): F43.21 - Adjustment disorder with depressed mood Brief History: Patient is a 32-year-old black male with a previous history of suicide attempt. Patient interviewed in bed and is guarded, evasive and at times rude. He continues to give conflicting information as he did in the note noted below. Today, patient claims he was never suicidal and never made statements he wanted to run into traffic. He is oppositional, with an irritable affect and minimal interaction during the interview. He minimizes alcohol use before the event. He does admit to recent depressed mood with low energy. However, today, he denies suicidal or homicidal ideation intent or plan. Recent stressors include the recent of his cousin in August 04 of this year. Describes his mood is "anxiety, loss of anxiety." Past psych: Try to kill himself in 2008 via hanging his young sister drowned in a pool Past medical: HIV? Past Famhx: Mom has depression Past Social:Claims he drinks a beer a day or glass of alcohol a day. Says he is working and in school. 32-year-old, single,, male, unemployed, currently living with his immediate family, no previous psychiatric history, 1 previous suicide attempt in 2008, who presents to the ED under [place] act initiated by law enforcement. That report alleges that the patient responded to a call from the patient's brother who stated the patient was running into traffic trying to kill himself. Patient reported to the police that he had been depressed and drinking heavily due to the recent of his brother. Patient was under the influence at the time and presented to the ED with blood alcohol level of 194. Electronic medical record is reviewed. No previous contact with [facility]. Patient has been monitored in J pod. He has been isolative, has refused his breakfast. Patient is seen. He is alert and oriented. He initially states that he was not trying to get hit by a car but that rather he was trying to get away from his family. However towards the end of the visit the patient began to cry and admitted that he wanted to . He also goes on to state that he never feels happy and that he does not see a purpose for his life. " I wish you guys which just sent me away" he states. The patient reports that he has felt depressed for a very long time. In terms of previous suicide attempt he states "I think I tried to hang myself back in 2008 when my sister ."He states his sister drowned in a swimming pool. He did not follow-up with treatment after his 3- day stay at [facility]. Current stressors include to include the recent of his brother in a motor vehicle accident approximately 3 weeks ago. Tobacco Use In Past 30 Days: No How Often Do You Have a Drink Containing Alcohol: Never Hospital Course: Patient is a 32-year-old man, domiciled with family, history of recent loss of family member 3 weeks ago which patient was brought in under [place] act due to allegedly having walked or ran in front of traffic in a suicide attempt which patient was admitted to the inpatient psychiatry for further evaluation and management. Patient was admitted to a locked, inpatient psychiatric unit. Appropriate precautions were in place throughout patient's hospital stay. Patient was seen and examined on the unit by psychiatry. Psychotropic medications were started and adjusted. There was no evidence of any suicidality or homicidality on the inpatient unit. Patient's mood improved with the benefit of psychopharmacological treatment and had no behavioral disturbance since admission. Patient was noted to have reached stable mood, noted to participate and engage in treatment and interact with staff adequately. Patient noted to be future oriented with plans to continue treatment and outpatient follow-up appointments for continuity of care. Counselor has arranged discharge plan which patient will return back to parents residence and transportation provided. On the day of discharge: Patient seen and examined; chart reviewed. Case discussed with nurse and counselor. No behavioral issues overnight. On my examination today, the patient denies any suicidal homicidal ideation, intent or plan on direct questioning and contracts for safety. Patient denies any perceptional disturbances and no delusional material verbalized today. Patient denies any side effects from medication and has understanding of medication regimen and education. No physical complaints. Suicide and violence risk assessment on day of discharge both suggest lower imminent risk, and the patient's level of function is adequate for plan level of outpatient care. Patient has maximized benefit from this inpatient psychiatric hospital stay and will be discharged with discharge plan as arranged by counselor. Patient advised to return to psychiatric emergency room for any concerning psychiatric symptoms. Patient agrees with plan. - Discharge Discharge Date: 03/04/18 - Discharge Diagnosis (1) Adjustment disorder with depressed mood Code(s): F43.21 - Adjustment disorder with depressed mood Status: Acute Discharge Disposition: Home - Discharge Instructions Discharge Diet: Regular Diet Activities You Can Perform: Weight Bearing As Tolerat - Discharge Time > 30 minutes Mental Status Examination Appearance: Appropriate Consciousness: Alert Orientation: x4 Motor Activity: Normal gait Speech: Unremarkable Language: Adequate Fund of Knowledge: Adequate Attention and Concentration: Adequate Memory: Unremarkable Mood: Appropriate Affect: Appropriate Thought Process & Associations: Intact, Logical, Linear Thought Content: Appropriate Hallucination Type: None Delusion Type: None Suicidal Ideation: No Suicidal Plan: No Suicidal Intention: No Homicidal Ideation: No Homicidal Plan: No Homicidal Intention: No Insight: Adequate Judgment: Adequate Discharge/Advance Care Plan - Results Vital Signs: Last Vital Signs Temp 99.1 F 03/03/18 17:10 Pulse 57 L 03/03/18 17:10 Resp 18 03/03/18 17:10 BP 125/66 03/03/18 17:10 Pulse Ox 100 03/03/18 17:10 Lab Results: Abnormal Lab Results 02/28/18 06:41 HIV-1 Antibody Positive HIV-2 Antibody Negative HIV (1&2) Ag & Ab Refer Reactive Laboratory Results Hemoglobin A1c 5.2 % (4.3-6.0) 02/28/18 08:43 Triglycerides 100 mg/dL (42-150) 02/28/18 06:01 Cholesterol 151 mg/dL (120-200) 02/28/18 06:01 LDL Cholesterol, Calc 93 mg/dL (0-99) 02/28/18 06:01 HDL Cholesterol 37.7 mg/dL (40.0-60.0) L 02/28/18 06:01 TSH 1.430 uIU/mL (0.358-3.740) 02/26/18 19:15 Summary of Procedures: none Pending Results: Lab Results (Pending results of lymphocyte profile, and viral load.) - Medications Number of antipsychotic medications at discharge: 0 - Discharge Care Plan Goals to Promote Your Health: * To prevent worsening of your condition and complications * To maintain your health at the optimal level Directions to Meet Your Goals: Take your medications as prescribed Follow your dietary instruction Follow activity as directed Keep your appointments as scheduled Take your immunizations and boosters as scheduled If your symptoms worsen call your PCP, if no PCP go to Urgent Care Center or Emergency Room For 21/10 questions related to your inpatient stay or results of tests pending at discharge, please contact Dr. Mele Morgan MD at Smoking is Dangerous to Your Health. Avoid second hand smoking
[2018-03-04] MEDS: LORazepam 1 MG Tablet PO PRN (16:44)
== END 2018-03-04 16:45 | disposition home or self-care (01) ==
LOC: NEPD 18:43 → H270 02-27 15:45 → NEDA 02-27 16:51 → H270 02-27 18:52 → H260 03-02 12:55
PROVIDERS: ADMIT Student in an Organized Health Care Education/Training Program; ATTEND Student in an Organized Health Care Education/Training Program